=== PATIENT | female | born 1990 | race Caucasian/White ===

== ENCOUNTER 2016-12-17 16:11 | Emergency (ER) | payer SELFPAY ==
[2016-12-17 16:26] VITALS: BP 118/76; PULSE 100; TEMP 98.9; BMI 26.6
[2016-12-17] MEDS ORDERED: ACETAMINOPHEN 500 MG TABLET (FP) PO ONE (18:51)
[2016-12-17] MEDS ORDERED: ACETAMINOPHEN 500 MG TABLET (FP) ONE (18:54)
--- NOTE | 2016-12-17 18:56 | PDOC ---
History of Present Illness - General Chief Complaint: Eye Problem Stated Complaint: FATIGUE Time Seen by Provider: 12/17/16 18:22 History Source: Patient Exam Limitations: No Limitations - History of Present Illness Initial Comments: 12/17/16 19:00 My Chief Complaint: left Eye irritation with photophobia and discharge History of present illness: Patient is a 26-year-old female with irritation to her left eye that started today with greenish discharge. Patient reports she feels as if she has something in her left eye with slight blurring of her vision. Patient denies any injury to her eye. Patient reports that she also has a headache on the left side of head. 12/18/16 17:33 Timing/Duration: getting worse Severity: mild Associated Symptoms: reports: other (left eye irritation with greenish discharge ) Past History - Past Medical History Allergies/Adverse Reactions: Allergies Allergy/AdvReac Type Severity Reaction Status Date / Time No Known Allergies Allergy Verified 12/17/16 16:26 Home Medications: Ambulatory Orders Tobramycin 0.3% Ophth Soln [Tobrex Ophthalmic Solution -] 1 drop OS Q6HPO #1 drops 12/17/16 Other medical history: DENIES MEDICAL HX - Suicide/Smoking/Psychosocial Hx Smoking History: Never smoked Hx Alcohol Use: No Drug/Substance Use Hx: No Review of Systems - Review of Systems Able to Perform ROS?: Yes Constitutional: No: Symptoms Reported HEENTM: Yes: Eye Pain (discomfort), Blurred Vision (slightly left eye ) Respiratory: No: Symptoms reported Cardiac (ROS): No: Symptoms Reported ABD/GI: No: Symptoms Reported : No: Symptoms Reported Musculoskeletal: No: Symptoms Reported Integumentary: No: Symptoms Reported Neurological: Yes: Headache (left sided) *Physical Exam - Vital Signs Last Vital Signs Temp Pulse Resp BP Pulse Ox 98.9 F 100 H 18 118/76 98 12/17/16 16:24 12/17/16 16:24 12/17/16 16:24 12/17/16 16:24 12/17/16 16:24 - Physical Exam General Appearance: Yes: Appropriately Dressed HEENT: positive: EOMI, MALKA, Photophobia, Other (left conjunctiva erythema, sclera slightly injected). negative: Pharyngeal Erythema, Tonsillar Exudate, Tonsillar Erythema, Nasal Congestion, Rhinorrhea Neck: negative: Lymphadenopathy (R), Lymphadenopathy (L) Respiratory/Chest: positive: Lungs Clear, Normal Breath Sounds. negative: Chest Tender, Respiratory Distress Cardiovascular: positive: Regular Rhythm, Regular Rate, S1, S2 Integumentary: positive: Normal Color Neurologic: positive: Alert Medical Decision Making - Medical Decision Making 12/17/16 19:01 Patient is a 26-year-old female with irritation to her left eye that started today with greenish discharge. Patient reports she feels as if she has seen in her eye with slightly blurring of her vision. Patient denies any injury to her eye. Patient reports that she also has a headache on the left side of head.. Left eye conjunctivitis PLAN: tobramycin 0.3 % opth ruben 1 drop every 6 hrs for 5 days follow up with opthomologist if symptoms worsen *DC/Admit/Observation/Transfer Diagnosis at time of Disposition: Conjunctivitis Qualifiers: Conjunctivitis type: unspecified Laterality: left Qualified Code(s): H10.9 - Unspecified conjunctivitis - Discharge Dispostion Disposition: HOME Condition at time of disposition: Good - Prescriptions Prescriptions: Tobramycin 0.3% Ophth Soln [Tobrex Ophthalmic Solution -] 1 drop OS Q6HPO #1 drops - Referrals Referrals: Grey Linares MD [Staff Physician] - - Patient Instructions Additional Instructions: Avoid rubbing your eye Wash her hands after touching her eyes Follow up with parking lot signaler if symptoms worsen Patient voiced understanding of discharge instructions all questions were answered - Post Discharge Activity Forms/Work/School Notes: Back to Work
== END 2016-12-17 19:04 | disposition home or self-care (01) ==
LOC: JERFT 16:11
DX: H10.32 Unspecified acute conjunctivitis, left eye (principal)
CPT/HCPCS: 99281-25